=== PATIENT | female | born 1950 | race Two or more races ===

== ENCOUNTER → 2020-03-14 08:00 | Outpatient (CLI) | payer OTHER ==
[~2020-03-14 08:00] MED LIST: AMLODI PO; FORTAMET500 MG PO; LIPITOR40 M1 PO; OMEPRAZOLE20 MG PO
== END | disposition home or self-care (01) ==
LOC: LAB 08:00 → ADM 08:15 → EDSTATUS 03-21 08:15 → CIR.AMB 03-21 08:15
PROVIDERS: ATTEND Surgery
DX: U07.1 COVID-19 (principal); E21.0 Primary hyperparathyroidism; E03.8 Other specified hypothyroidism; D68.8 Other specified coagulation defects

== ENCOUNTER 2023-05-13 10:01 | Day surgery (SDC) | payer OTHER ==
[2023-05-07 10:06] LABS: PH,URINE 7.5 (5.0-8.0); URINE APPEARANCE Turbid; URINE BILIRRUBIN Negative (NEGATIVE); URINE BLOOD Negative; URINE COLOR Yellow; URINE GLUCOSE Negative (NEGATIVE); URINE LEUKOCYTE Trace; URINE NITRATE Negative; URINE PROTEIN Negative (NEGATIVE); URINE UROBILINOGEN 0.2 E.U./dl
[2023-05-07 10:09] LABS: HEMATOCRIT 38.7 % (36.0-45.00); MEAN CELL VOLUME 90.8 fL (80.00-100.00); MEAN CORPUSCULAR HEMOGLOBIN 30.5 pg (27.00-32.0); MEAN CORPUSCULAR HGB CONC 33.6 g/dl (32.0-36.0); PLATELET COUNT 285 K/uL (150-450); RED BLOOD COUNT 4.27 M/uL (4.00-6.00); RED CELL DISTRIBUTION WIDTH 13.8 % (11.5-14.5)
[2023-05-07 10:10] LABS: URINE BACTERIA 11.3 uL (0.0-1933); URINE EPITHELIAL CELLS 1.8 uL (0.0-38.8); URINE RBC 5.1 uL (0.0-20.8); URINE WBC 9.6 uL (0.0-23.2)
[2023-05-07 10:28] LABS: PARTIAL THROMBOPLASTIN TIME 25.6 SECONDS (22.0-34.0); PROTHROMBIN TIME 10.5 SECONDS (9.0-11.5)
[2023-05-07 10:35] LABS: ALBUMIN 4.3 gm/dL (3.4-5.0); BILIRUBIN TOTAL 0.38 mg/dL (0.3-1.2); CREATININE SERUM 0.77 mg/dL (0.55-1.02); GFR 74.11; GLOBULINA 3.5 G/DL (2.4-3.5); POTASSIUM 4.31 mEq/L (3.5-5.1); TOTAL PROTEIN 7.8 gm/dL (6.4-8.2)
[~2023-05-13 10:01] MED LIST changes: +CENTRUM ADULTS1 EACH PO; +JANUMET 50-1,01 EACH PO
[2023-05-13 11:20] LABS: T4 FREE 0.9 NG/ML (0.76-1.46); TSH 1.35 uIU/mL (0.358-3.74)
[2023-05-13] MEDS ORDERED: PERCOCET 5-3251 EACH PO (16:33)
== END 2023-05-13 20:20 | disposition home or self-care (01) ==
LOC: CIR.AMB 10:01
PROVIDERS: ATTEND Surgery
DX: D35.1 Benign neoplasm of parathyroid gland (principal); E21.0 Primary hyperparathyroidism; Z20.822 Contact with and (suspected) exposure to COVID-19; Z88.6 Allergy status to analgesic agent; E11.9 Type 2 diabetes mellitus without complications; I10 Essential (primary) hypertension; E78.5 Hyperlipidemia, unspecified

== ENCOUNTER 2025-01-02 10:17 | Outpatient (CLI) | payer OTHER ==
[~2025-01-02 10:17] MED LIST changes: +PERCOCET 5-3251 EACH PO
== END 2025-01-02 10:21 | disposition home or self-care (01) ==
LOC: SONOGRAMA 10:17
PROVIDERS: ATTEND Pathology Anatomic Pathology & Clinical Pathology
DX: D34 Benign neoplasm of thyroid gland (principal); E04.2 Nontoxic multinodular goiter